=== PATIENT | male | born 1985 | race Caucasian/White ===

== ENCOUNTER 2019-07-23 20:41 | Emergency (ER) | payer BC, OTHER ==
[2019-07-23 20:54] VITALS: BP 122/80; PULSE 79; TEMP 98.3; BMI 22.8
[2019-07-23] MEDS ORDERED: FAMOTIDINE 20 MG/50 ML IVPB 20 MG/50 ML MG IVPB ONE ×2 (21:37→21:55)
--- NOTE | 2019-07-23 21:41 | PDOC ---
Documentation entered by Kit Flannery SCRIBE, acting as scribe for Maren Pruett MD. Maren Pruett MD: This documentation has been prepared by the Prudencio cedillo Aiswarya, SCRIBE, under my direction and personally reviewed by me in its entirety. I confirm that the documentation accurately reflects all work, treatment, procedures, and medical decision making performed by me. History of Present Illness - General Chief Complaint: Pain Stated Complaint: ABD PAIN Time Seen by Provider: 07/23/19 20:57 History Source: Patient Exam Limitations: No Limitations - History of Present Illness Initial Comments: 07/23/19 21:24 The patient is a 33 year old male, with no significant PMH, who presents to the emergency department with abdominal pain that began 1 week ago. The patient states intermittent pain that last for about 2-3 hours, is located to the mid epigastric area and worsened at night. The patient states he went to Urgent Care 07/18/19 where a CAT scan was done and he was diagnosed with gas. Patient was prescribed famotidine and began intake since yesterday.He states he also took some milk of magnesia but stopped taking it because he felt it made the pain worse. Patient currently reports he is constipated and states last bowel movement was 1 week ago. Denies fever, chills, nausea, vomit, diarrhea and constipation. Denies dysuria, frequency, urgency and hematuria. PAST MEDICAL HISTORY: no significant history PAST SURGICAL HISTORY: no significant history FAMILY HISTORY: no pertinent history SOCIAL HISTORY: Pt lives with family and is employed. MEDICATIONS: reviewed ALLERGIES: As per nursing notes Adult ROS General: No fevers or chills, no weakness, no weight loss HEENT: No change in vision. No sore throat,. No ear pain CardioVascular: No chest pain or shortness of breath Respiratory:No cough, or wheezing. Gastrointestinal: +constipated. no nausea, vomiting, diarrhea. No rectal bleeding Genitourinary: No dysuria, hematuria, or frequency Musculoskeletal: No joint or muscle pain or swelling Neurologic: No headache, vertigo, dizziness or loss of consciousness Psychiatric: nor depression Skin: No rashes or easy bruising Endocrine: no increased thirst or abnormal weight change Allergic: no skin or latex allergy All other systems reviewed and normal Adult Exam: General: Well-nourished well-developed individual, no acute distress HEENT: Throat: Normal, tonsils normal, no erythema or exudate Neck: Supple, no meningeal signs, no lymphadenopathy Eyes::Pupils equal reactive and round, extraocular motion intact Chest: Nontender to palpation Cardiac: S1-S2 normal, regular rate and rhythm, no murmurs rubs or gallops Respiratory: Lungs clear to auscultation bilateral Abdomen: Soft, nondistended, normal bowel sounds, nontender to palpation diffusely Extremities: Warm, dry, no cyanosis, clubbing, or edema Skin: No rashes Neuro: Alert and oriented x3, nonfocal exam, grossly intact, normal gait Psych: Normal mood and affect 07/23/19 21:39 Assessment and plan: This is a 33-year-old male who comes in complaining of abdominal pain in the epigastric region. Patient was at an urgent care center 5 days ago had a complete work-up including labs and CAT scan. Patient said he is continued to have pain. Patient was given a prescription for an antacid but did not get it filled and start taking it until yesterday. Patient was given a diagnosis of gastritis. Patient otherwise denies any vomiting or diarrhea. Patient said he does have some constipation and last normal bowel movement was almost a week ago. Patient said he has been having bowel movements but the stool is been hard or a small amount of diarrhea. Work-up initiated including flat and upright abdomen CBC, comp, lipase and urine. Flat and upright abdomen showed no acute pathology no constipation 07/23/19 23:25 Patient's blood work was normal. Discussed results of patient's blood work with patient. Patient said the Pepcid helped with the symptoms. Patient discharged home will follow-up with a GI doctor next week. 07/23/19 23:27 Past History - Past Medical History Allergies/Adverse Reactions: Allergies Allergy/AdvReac Type Severity Reaction Status Date / Time No Known Allergies Allergy Verified 04/04/19 10:55 Home Medications: Ambulatory Orders NK [No Known Home Medication] 07/10/14 COPD: No - Psycho Social/Smoking Cessation Hx Smoking History: Unknown if ever smoked Have you smoked in the past 12 months: No Number of Cigarettes Smoked Daily: 0 Information on smoking cessation initiated: No Hx Alcohol Use: No Drug/Substance Use Hx: No Substance Use Type: None *Physical Exam - Vital Signs Last Vital Signs Temp Pulse Resp BP Pulse Ox 98.3 F 79 14 122/80 100 07/23/19 20:48 07/23/19 20:48 07/23/19 20:48 07/23/19 20:48 07/23/19 20:48 ED Treatment Course - LABORATORY CBC & Chemistry Diagram: 07/23/19 22:04 07/23/19 22:04 - RADIOLOGY Radiology Studies Ordered: Category Date Time Status ABDOMEN FLAT & UPRIGHT [RAD] Stat Radiology 07/23/19 21:08 Ordered Discharge - Discharge Information Problems reviewed: Yes Clinical Impression/Diagnosis: Gastritis Qualifiers: Gastritis type: unspecified gastritis Chronicity: unspecified Gastritis bleeding: without bleeding Qualified Code(s): K29.70 - Gastritis, unspecified, without bleeding Condition: Good Disposition: HOME - Admission No - Follow up/Referral - Patient Discharge Instructions Additional Instructions: Continue to take your antacid for at least 2 weeks. Take the mag citrate for the constipation. Return to the emergency department immediately with ANY new, persistent or worsening symptoms. Continue any medications as previously prescribed by your physician. You should follow up with a GI doctor as soon as possible regarding today's emergency department visit. . Please make sure your doctor reviews the results of your emergency evaluation. Thank you for coming to the Emergency Department today for your care. It was a pleasure to see you today. Please note that your evaluation is INCOMPLETE until you follow-up with your doctor. - Post Discharge Activity
[2019-07-23 22:24] LABS: BASO % 0.6 % (0-2.0); EOS % 2.1 % (0-4.5); HEMOGLOBIN 15.2 GM/dl (11.7-16.9); LYMPH % 26.9 % (8-40); MCH 30.3 pg (25.7-33.7); MCHC 33.9 g/dl (32.0-35.9); MEAN CELL VOLUME 89.5 fl (80-96); MEAN PLT VOLUME 8.4 fl (7.5-11.1); MONO % 9.4 % (3.8-10.2); PLATELET COUNT 278 K/MM3 (134-434); RBC 5.03 M/mm3 (4.00-5.60); RDW 11.5 % (11.9-15.9); WHITE BLOOD COUNT 7.7 K/mm3 (4.0-10.8)
[2019-07-23 22:35] LABS: ALBUMIN 4.4 g/dl (3.4-5.0); CALCIUM 9.2 mg/dl (8.5-10); CREATININE 0.9 mg/dl (0.55-1.3); POTASSIUM 4.4 mmol/L (3.5-5.1); TOT PROT 7.3 g/dl (6.4-8.2)
[2019-07-23] MEDS ORDERED: MAGNESIUM CITRATE 300 ML BOTTLE PO ONE (23:24)
[2019-07-23] MEDS ORDERED: MAGNESIUM CITRATE 300 ML BOTTLE ONE (23:38)
== END 2019-07-23 23:43 | disposition home or self-care (01) ==
LOC: FER 20:41
PROC: 3E033GC Introduction of Other Therapeutic Substance into Peripheral Vein, Percutaneous Approach (ICD-10-PCS; principal; 2019-07-23)
DX: K29.70 Gastritis, unspecified, without bleeding (principal)
CPT/HCPCS: 36415; 74019-TC-FY; 80053; 81003; 83690; 85025; 99283-25

== ENCOUNTER 2021-01-09 23:35 | Emergency (ER) | payer BC ==
[2021-01-09] MEDS ORDERED: KETOROLAC TROMETHAMINE 30 MG/1 ML VIAL IVPUSH ONE (23:42)
[2021-01-09] MEDS ORDERED: SODIUM CHLORIDE 0.9% 1000 ML INFUS.BAG IV ONE (23:42)
[2021-01-09] MEDS ORDERED: ACETAMINOPHEN 1000 MG/100 ML VIAL (NON FORMULARY) IVPB ONE (23:48)
[2021-01-09 23:51] VITALS: BP 125/77; PULSE 65; TEMP 97.7; BMI 22.8
[2021-01-09] MEDS ORDERED: ACETAMINOPHEN INJECTION 100 ML IVPB ONE (23:54)
[2021-01-10 00:33] LABS: BASO % 0.5 % (0-2.0); EOS % 1.7 % (0-4.5); HEMATOCRIT 41.8 % (35.4-49); HEMOGLOBIN 14.4 GM/dL (11.7-16.9); LYMPH % 20.2 % (8-40); MCH 30.4 pg (25.7-33.7); MCHC 34.5 g/dl (32.0-35.9); MEAN CELL VOLUME 88.1 fl (80-96); MEAN PLT VOLUME 8.3 fl (7.5-11.1); MONO % 6.8 % (3.8-10.2); NEUT % 70.8 % (42.8-82.8); PLATELET COUNT 233 K/MM3 (134-434); RBC 4.74 M/mm3 (4.00-5.60); RDW 12.1 % (11.9-15.9); WHITE BLOOD COUNT 8.4 K/mm3 (4.0-10.0)
[2021-01-10] MEDS ORDERED: TAMSULOSIN HCL 0.4 MG CAP PO ONE (00:34)
[2021-01-10 00:37] LABS: EPI CELLS 8 /uL (0-25.1); HYALINE CASTS 4 /uL (0-3.1); URINE APPEARANCE CLEAR; URINE BACTERIA 11 /uL (0-1359); URINE BILIRUBIN NEGATIVE (NEGATIVE); URINE COLOR YELLOW; URINE GLUCOSE (UA) NEGATIVE (NEGATIVE); URINE KETONE TRACE (NEGATIVE); URINE LEUK ESTERASE NEGATIVE (NEGATIVE); URINE NITRITE NEGATIVE (NEGATIVE); URINE PROTEIN TRACE (NEGATIVE); URINE RBC 137 /uL (0-23.9); URINE UROBILINOGEN 0.2 mg/dL (0.2-1.0); URINE WBC 5 /uL (0-25.8)
[2021-01-10 00:54] LABS: CALCIUM 8.9 mg/dL (8.5-10.1)
[2021-01-10 00:55] LABS: ALBUMIN 4.3 g/dl (3.4-5.0); BLOOD UREA NITROGEN 18.2 mg/dL (7-18)
[2021-01-10 00:58] LABS: CREATININE 1.4 mg/dL (0.55-1.3)
[2021-01-10 00:59] LABS: BILIRUBIN,TOTAL 0.4 mg/dL (0.2-1)
[2021-01-10 01:00] LABS: TOT PROT 7.5 g/dl (6.4-8.2)
[2021-01-10] MEDS ORDERED: TAMSULOSIN HCL 0.4 MG CAP ONE (01:18)
[2021-01-10 03:13] LABS: URINE CRYSTALS PRESENT /hpf
== END 2021-01-10 01:24 | disposition home or self-care (01) ==
LOC: FER 23:35
PROC: 3E033GC Introduction of Other Therapeutic Substance into Peripheral Vein, Percutaneous Approach (ICD-10-PCS; principal; 2021-01-09)
DX: N23 Unspecified renal colic (principal)
CPT/HCPCS: 36415; 74176-TC; 80053; 81003; 85025; 99285-25; J0131

== ENCOUNTER 2021-01-11 00:04 | Emergency (ER) | payer BC ==
[2021-01-11 00:12] VITALS: BP 133/84; PULSE 73; TEMP 98.4; BMI 22.8
[2021-01-11] MEDS ORDERED: KETOROLAC TROMETHAMINE 30 MG/1 ML VIAL ONE (02:02)
[2021-01-11] MEDS ORDERED: KETOROLAC TROMETHAMINE 30 MG/1 ML VIAL IVPUSH ONE (02:05)
== END 2021-01-11 02:47 | disposition home or self-care (01) ==
LOC: FER 00:04
PROC: 3E0333Z Introduction of Anti-inflammatory into Peripheral Vein, Percutaneous Approach (ICD-10-PCS; principal; 2021-01-11)
DX: N23 Unspecified renal colic (principal)
CPT/HCPCS: 99284-25

== ENCOUNTER 2021-04-14 10:52 | Emergency (ER) | payer BC ==
[2021-04-14 11:10] VITALS: BP 119/63; PULSE 67; TEMP 97.8; BMI 22.8
[2021-04-14] MEDS ORDERED: KETOROLAC TROMETHAMINE 30 MG/1 ML VIAL IM ONE (13:02)
[2021-04-14] MEDS ORDERED: KETOROLAC TROMETHAMINE 30 MG/1 ML VIAL ONE (13:03)
== END 2021-04-14 13:36 | disposition home or self-care (01) ==
LOC: JER 10:52
PROC: 3E023GC Introduction of Other Therapeutic Substance into Muscle, Percutaneous Approach (ICD-10-PCS; principal; 2021-04-14)
DX: R10.31 Right lower quadrant pain (principal)
CPT/HCPCS: 99284-25

== ENCOUNTER 2022-04-19 10:20 | Emergency (ER) | payer BC ==
[2022-04-19 10:30] VITALS: BP 129/91; PULSE 82; RESP 16; TEMP 99.4; BMI 22.8
[2022-04-19] MEDS ORDERED: KETOROLAC TROMETHAMINE 30 MG/1 ML VIAL IM ONE (10:35)
[2022-04-19] MEDS ORDERED: KETOROLAC TROMETHAMINE 30 MG/1 ML VIAL ONE (10:59)
== END 2022-04-19 11:22 | disposition home or self-care (01) ==
LOC: FER 10:20
PROC: 3E0233Z Introduction of Anti-inflammatory into Muscle, Percutaneous Approach (ICD-10-PCS; principal; 2022-04-19)
DX: M54.32 Sciatica, left side (principal)
CPT/HCPCS: 99283-25

== ENCOUNTER 2023-02-05 11:57 | Emergency (ER) | payer OTHER, BC ==
[2023-02-05 12:18] VITALS: BP 114/60; PULSE 75; RESP 16; TEMP 98.5; BMI 23.6
[2023-02-05] MEDS ORDERED: LIDOCAINE 5% TOPICAL PATCH TP ONE (12:26)
[2023-02-05] MEDS ORDERED: IBUPROFEN 600 MG TABLET (FP) PO ONE ×2 (12:26→12:29)
[2023-02-05] MEDS ORDERED: LIDOCAINE 5% TOPICAL PATCH ONE (12:29)
[2023-02-05] MEDS ORDERED: LIDOCAINE PATCH REMOVAL MC SCH (22:00)
== END 2023-02-05 13:25 | disposition home or self-care (01) ==
LOC: FER 11:57
DX: M54.41 Lumbago with sciatica, right side (principal); R20.2 Paresthesia of skin
CPT/HCPCS: 72100-TC-FY; 99283-25

== ENCOUNTER 2023-08-21 03:44 | Emergency (ER) | payer BC, OTHER ==
[2023-08-21 04:07] VITALS: BP 122/88; PULSE 100; RESP 14; BMI 27.3
[2023-08-21] MEDS ORDERED: IBUPROFEN 100 MG/5 ML UNIT DOSE CUPS PO ONE (04:08)
[2023-08-21] MEDS ORDERED: LIDOCAINE VISCOUS 2% ORAL/TOP 15 ML UNIT-DOSE CUP MM ONE (04:08)
[2023-08-21] MEDS ORDERED: guaiFENesin/D-METHORPHAN HB 10 ML UNIT-DOSE CUPS PO ONE (04:09)
[2023-08-21] MEDS ORDERED: IBUPROFEN 100 MG/5 ML UNIT DOSE CUPS ONE (04:14)
[2023-08-21] MEDS ORDERED: guaiFENesin/D-METHORPHAN HB 10 ML UNIT-DOSE CUPS ONE (04:15)
== END 2023-08-21 04:31 | disposition home or self-care (01) ==
LOC: FER 03:44
DX: R05.9 Cough, unspecified (principal); J02.9 Acute pharyngitis, unspecified; J11.1 Influenza due to unidentified influenza virus with other respiratory manifestations
CPT/HCPCS: 99283-25